=== PATIENT | female | born 1985 | race Caucasian/White ===

== ENCOUNTER 2023-12-25 10:09 | Emergency (ER) | payer OTHER, SELFPAY ==
[2023-12-25 10:15] VITALS: BP 123/85; PULSE 65; RESP 16; TEMP 36.3; O2SAT 98; BMI 28.7
--- NOTE | 2023-12-25 10:24 | ED_ITS ---
HPI - General Adult General Time Seen by Provider: 10:24 Date Seen: 12/25/23 Chief complaint: Extremity Pain/Injury, Lower Stated complaint: numbness down right leg Time Seen by Provider: 12/25/23 10:23 Source: patient and RN notes reviewed Mode of arrival: ambulatory Limitations: no limitations History of Present Illness HPI narrative: This 38-year-old female is presenting to the ER with concern of possible blood clot in her calf. For couple of days now, she has noticed some numbness sensation the back of the calf, some discomfort. She feels a numbness or tingly type sensation in the back of the right calf with walking. She also now has a sense that there is just some discomfort back there, like a soreness after you would have with a charley horse. She denies any fevers or chills, is a nonsmoker. She has had no shortness of breath, no respiratory symptoms, no chest pain. She has altered her walking in maybe now notes a little hip to low back pain but it did not start that way. Besides the increased walking at work the last 3 weeks or so, notes no trauma. She is not on any contraceptives, does not believe that there is any chance for at this time. She has had no history of blood clots, is not aware of any family history of blood clots. She does not have baseline back pain, we did discuss the possibility of atypical presentation of lumbar radiculopathy, she had considered that as well. She has had an EMG in her right arm, has atypical carpal tunnel. She understands if the ultrasound is negative, may need further workup for numbness tingling in the calf which could include EMG of the extremity, consideration of lumbar radiculopathy, possible MRI brain if no other evaluation is positive and has ongoing symptoms. Related Data Home Medications ?Medication ?Instructions ?Recorded ?Confirmed Zyrtec 12/25/23 amlodipine 5 mg tablet 5 mg PO DAILY 12/25/23 12/25/23 metoprolol succinate 100 mg 100 mg PO DAILY 12/25/23 12/25/23 tablet,extended release 24 hr Allergies Allergy/AdvReac Type Severity Reaction Status Date / Time Penicillins Allergy Intermediate Verified 12/25/23 10:19 Review of Systems Status of ROS: Reports: 6 or more systems reviewed and unremarkable except as noted in History and below Exam Const: Vital Signs, click to edit/add: Vital Signs - 24 hr 12/25/23 10:15 Temperature 97.4 F L Pulse Rate [Pulse Oximeter] 65 Respiratory Rate 16 Blood Pressure [Ri ght Upper Arm] 123/85 Pulse Oximetry 98 Oxygen Delivery Me thod Room Air This 38-year-old female is alert, interactive, no apparent distress. Sclera clear, conjugate gaze, able speak in complete sentences and has normal voice. Neck is supple, no adenopathy or masses noted. Lungs are clear, good air entry, no wheezing or crackles. CV regular rate and rhythm, no murmur, normal S1-S2, no S3-S4. On inspection of her lower extremities no evidence of any edema, no discoloration of skin. She has good peripheral pulses come neurovascular is intact. She just has a sense of some tenderness in the mid calf muscle but I feel no palpable cord, do not feel any mass. She has no popliteal fossa tenderness or masses noted. There is no knee joint effusion, ankle full range of motion without effusion. No pain with general internal external rotation of the hip. Negative straight leg raising. Documenting provider has reviewed patient's vital signs: yes Course Course ED Course: We will proceed with ultrasound of this leg. We did also discuss blood work in looking at electrolytes for pain/cramps, paresthesia workup. We will proceed with some basic blood work encompassing a CBC, comprehensive metabolic panel, magnesium and a TSH. I am not going to do a D-dimer as we are going to ultrasound anyway. Patient is aware that the special forces officer may need to be called in from home and there may be a period of a wait to have this test done. Reevaluation(s) Time of Reevaluation #1: 12:03 Reevaluation #1: Reviewed with patient normal ultrasound, no DVT. We reviewed the normal labs. She will monitor her symptoms, see if this might be coming from an atypical presentation of a lumbar radiculopathy, information was given. She is also aware that if it is just more numbness tingling in this extremity, EMG might need to be done but need to have symptoms for 2 weeks for the EMG to be diagnostic. She is discharged in stable condition from ED for further outpatient evaluation and work up if symptoms are ongoing. Vital Signs Vital signs: Initial Vital Signs Temperature 97.4 F L 12/25/23 10:15 Temperature Source Temporal Artery Scan 12/25/23 10:15 Pulse Rate 65 12/25/23 10:15 Respiratory Rate 16 12/25/23 10:15 Blood Pressure 123/85 12/25/23 10:15 Blood Pressure Mean 97 12/25/23 10:15 Blood Pressure Position Supine 12/25/23 10:15 Pulse Oximetry 98 12/25/23 10:15 Oxygen Delivery Method Room Air 12/25/23 10:15 Vital Signs Temperature 97.4 F L 12/25/23 10:15 Pulse Rate 65 12/25/23 10:15 Respiratory Rate 16 12/25/23 10:15 Blood Pressure 123/85 12/25/23 10:15 Pulse Oximetry 98 12/25/23 10:15 Oxygen Delivery Method Room Air 12/25/23 10:15 Temperature 97.4 F L 12/25/23 10:15 Pulse Rate 65 12/25/23 10:15 Respiratory Rate 16 12/25/23 10:15 Blood Pressure 123/85 12/25/23 10:15 Pulse Oximetry 98 12/25/23 10:15 Oxygen Delivery Method Room Air 12/25/23 10:15 Medical Decision Making Lab Data Lab results reviewed: Yes I reviewed the patient's lab results Labs: Lab Results 12/25/23 Range/Units 10:55 WBC 9.31 (4.50-11.00) K/uL RBC 5.21 H (4.00-5.20) m/uL Hgb 13.8 (12.0-16.0) gm/dL Hct 42.6 (33.0-51.0) % MCV 82 (80-100) fL MCH 27 (26-34) pg MCHC 32 (32-36) gm/dL RDW Coeff of Nelida 13.2 (11.5-15.5) % Plt Count 291 (140-440) K/uL Neut % (Auto) 70.1 (42.0-72.0) % Lymph % (Auto) 20.7 (20-44) % Emanuel % (Auto) 6.3 (0.0-11.0) % Eos % (Auto) 2.1 (0.0-7.0) % Baso % (Auto) 0.2 (0.0-3.0) % Neut # (Auto) 6.51 (1.7-7.0) K/uL Lymph # (Auto) 1.93 (0.90-2.90) K/uL Emanuel # (Auto) 0.60 (0.00-0.90) K/UL Eos # (Auto) 0.20 (0.00-0.50) K/uL Baso # (Auto) 0.02 (0.00-0.30) K/uL Abs Immat Gran (auto) 0.06 (0.00-0.30) K/uL Imm/Tot Granulo (auto) 0.6 % Sodium 138 (135-149) mmol/L Potassium 4.1 (3.6-5.1) mmol/L Chloride 108 (96-114) mmol/L Carbon Dioxide 20 (20-32) mmol/L Anion Gap 10 (7-15) mEq/L BUN 19 (5-24) mg/dL Creatinine 0.9 (0.5-1.5) mg/dL Estimated Creat Clear 79.34 Estimated GFR 84 ml/min Glucose 97 (60-115) mg/dL Calcium 9.4 (8.4-10.6) mg/dL Magnesium 2.3 (1.5-2.6) mg/dL Total Bilirubin 0.5 (0.1-1.5) mg/dL AST 18 (12-35) U/L ALT 13 (4-35) U/L Alkaline Phosphatase 54 (40-150) U/L Total Protein 7.5 (6.0-8.3) g/dL Albumin 4.5 (3.3-5.0) g/dL TSH 2.370 (0.270-4.200) uIU/mL Imaging Data Venous US: Attestation: I have reviewed the pertinent imaging results. Radiologist's impression: Patient: NAIF LARRY Facility:?[facility] Patient ID:?[id number] Site Patient ID:?[id number]. Site :?[id number] Study:?US-Extremity Right LEV RT-12/25/2023 11:31:46 AM Ordering Physician:Justus Serrano Final Report: INDICATION: Right calf pain TECHNIQUE: Ultrasound venous duplex lower right extremity. Compression venous exam was performed using garcia-scale, color Doppler, and spectral Doppler imaging. COMPARISON: None. FINDINGS: Sonographic imaging demonstrates the right common femoral, femoral, popliteal, posterior tibial, peroneal and greater saphenous and the contralateral left common femoral veins to be fully compressible with normal color Doppler blood flow. IMPRESSION: No sonographic evidence of a right lower extremity deep venous thrombosis. Dictated by Pennie العلي MD @ 12/25/2023 12:01:07 PM Dictated by: Pennie العلي MD @ 12/25/2023 12:01:25 (Electronic Signature) Discharge Plan Discharge Clinical Impression: Lower extremity numbness Patient Disposition: Home, Self-Care Condition: Stable Instructions: Paresthesia (ED), Lumbar Radiculopathy (ED) Additional Instructions: Continue to monitor your symptoms and schedule a follow-up clinic appointment. If you have ongoing symptoms, can work with your primary care provider for further evaluation and management. Initial labs here are normal, no evidence of any electrolyte abnormalities that would cause muscle cramping or labs responsible for any underlying cause of paresthesia. Ultrasound is negative for any blood clot in this extremity. Activity Level: Activity as Tolerated Prescriptions: No Action metoprolol succinate 100 mg tablet extended release 24 hr 100 mg PO DAILY amlodipine 5 mg tablet 5 mg PO DAILY Zyrtec Follow Up/Referrals: Shruthi Perez PA-C [Primary Care Provider] - Stand Alone Forms: MyHealth Info Instructions
--- NOTE | 2023-12-25 10:32 | CRLHL7_ITS ---
For Patients: As a result of the Century Cures Act, medical imaging exams and procedure reports are released immediately into your electronic medical record. You may view this report before your referring provider. If you have questions, please contact your health care provider. INDICATION: Right calf pain TECHNIQUE: Ultrasound venous duplex lower right extremity. Compression venous exam was performed using garcia-scale, color Doppler, and spectral Doppler imaging. COMPARISON: None. FINDINGS: Sonographic imaging demonstrates the right common femoral, femoral, popliteal, posterior tibial, peroneal and greater saphenous and the contralateral left common femoral veins to be fully compressible with normal color Doppler blood flow. IMPRESSION: No sonographic evidence of a right lower extremity deep venous thrombosis. Dictated by Pennie العلي MD @ 12/25/2023 12:01:07 PM Dictated by: Pennie العلي MD @ 12/25/2023 12:01:25 (Electronically Signed)
[2023-12-25 11:08] LABS: Basophils Absolute Auto 0.02 K/uL (0.00-0.30); Basophils Percent Auto 0.2 % (0.0-3.0); Eosinophils Percent Auto 2.1 % (0.0-7.0); Hematocrit 42.6 % (33.0-51.0); Hemoglobin* 13.8 gm/dL (12.0-16.0); Immature Granulocytes Abs Auto 0.06 K/uL (0.00-0.30); Immature Granulocytes Pct Auto 0.6 %; Lymphocytes Absolute Auto 1.93 K/uL (0.90-2.90); Lymphocytes Percent Auto 20.7 % (20-44); Mean Corpuscular HGB Conc 32 gm/dL (32-36); Mean Corpuscular Hemoglobin 27 pg (26-34); Mean Corpuscular Volume 82 fL (80-100); Monocytes Percent Auto 6.3 % (0.0-11.0); Neutrophils Absolute Auto 6.51 K/uL (1.7-7.0); Neutrophils Percent Auto 70.1 % (42.0-72.0); Platelet Count* 291 K/uL (140-440); RDW Coefficient of Variation % 13.2 % (11.5-15.5); Red Blood Count 5.21 m/uL (4.00-5.20); White Blood Count* 9.31 K/uL (4.50-11.00)
[2023-12-25 11:11] LABS: Slide Review Reflex No
[2023-12-25 11:17] LABS: Albumin* 4.5 g/dL (3.3-5.0); Chloride* 108 mmol/L (96-114); Potassium* 4.1 mmol/L (3.6-5.1); Sodium* 138 mmol/L (135-149)
[2023-12-25 11:19] LABS: Creatinine* 0.9 mg/dL (0.5-1.5); Est. Creatinine Clearance* 79.34; Estimated Glomerular Filt Rate 84 ml/min
[2023-12-25 11:20] LABS: Alanine Aminotransferase* 13 U/L (4-35); Alkaline Phosphatase* 54 U/L (40-150); Anion Gap 10 mEq/L (7-15); Aspartate Amino Transferase* 18 U/L (12-35); Bilirubin Total* 0.5 mg/dL (0.1-1.5); Blood Urea Nitrogen* 19 mg/dL (5-24); Calcium* 9.4 mg/dL (8.4-10.6); Carbon Dioxide* 20 mmol/L (20-32); Glucose* 97 mg/dL (60-115); Magnesium* 2.3 mg/dL (1.5-2.6); Total Protein* 7.5 g/dL (6.0-8.3)
== END 2023-12-25 12:10 | disposition home or self-care (01) ==
PROVIDERS: Emergency Provider Family Medicine; PCP Physician Assistant
DX: R20.0 Anesthesia of skin (principal)
CPT/HCPCS: 36415; 80053; 83735; 84443; 85025; 93971; 99283